=== PATIENT | female | born 1985 | race Caucasian/White ===

== ENCOUNTER 2017-06-16 12:49 | Emergency (ER) | payer MEDICAID ==
[~2017-06-16] VITALS: Ht 160 cm; Wt 105.9 kg
[2017-06-16 13:34] VITALS: BP 137/86
--- NOTE | 2017-06-16 13:36 | NUR ---
PT AMBULATES BACK TO THE LOBBY
--- NOTE | 2017-06-16 14:31 | NUR ---
PATIENT AMB. TO CHAIR #D
--- NOTE | 2017-06-16 14:36 | NUR ---
PT COMES TO ER WITH C/O EPIGATRIC PAIN WITH 12 EPISODES OF DIARRHEA SINCE THIS AM, PT DENIES ANY BLOOD IN STOOL. DENIES DYSURIA. ABD LARGE, NT TO PALPATION. RESP EVEN AND UNLABORED, IN NAD. SKIN W/D/I. KELVIN FOR ER MD DALY.
--- NOTE | 2017-06-16 14:47 | NUR ---
URINE COLLECTED AND TESTED
[2017-06-16] MEDS ORDERED: ONDANSETRON 4 MG ODT SL PRN (17:20)
[2017-06-16] MEDS ORDERED: LOPERAMIDE 2 MG CAP PO ONE (17:20)
--- NOTE | 2017-06-16 17:24 | NUR ---
DR MCCORD IN ROOM FOR EXAM
[2017-06-16 17:36] LABS: BASOPHILS % (AUTO) 0.5 % (0.0-2.0); EOSINOPHILS # (AUTO) 0.1 K/uL (0-0.4); EOSINOPHILS % (AUTO) 1.7 % (0.0-4.0); HEMATOCRIT 43.7 % (36-48); HEMOGLOBIN 14.4 g/dL (12.0-16.0); LYMPHOCYTES # (AUTO) 3.1 K/uL (2.5-16.5); LYMPHOCYTES % (AUTO) 42.2 % (20.5-51.1); MEAN CORPUSCULAR HEMOGLOBIN 28 pg (27-31); MEAN CORPUSCULAR HGB CONC 33 g/dL (33-37); MEAN CORPUSCULAR VOLUME 84 fL (80-94); MONOCYTES # (AUTO) 0.3 K/uL (0.8-1.0); MONOCYTES % (AUTO) 3.6 % (1.7-9.3); NEUTROPHILS # (AUTO) 3.7 K/uL (1.8-7.7); PLATELET COUNT (AUTO) 232 K/uL (140-450); RED BLOOD CELL COUNT(AUTO) 5.21 MIL/uL (4.20-5.40); RED CELL DISTRIBUTION WIDTH 12.6 % (11.6-13.7); WHITE BLOOD COUNT (AUTO) 7.2 K/uL (4.8-10.8)
[2017-06-16 17:56] LABS: ALBUMIN 3.9 g/dL (3.4-5.0); ANION GAP 11.9 (8-16); CARBON DIOXIDE 28.1 mmol/L (21-32); CREATININE 0.7 mg/dL (0.6-1.3); TOTAL BILIRUBIN 0.4 mg/dL (0.0-1.0)
--- NOTE | 2017-06-16 18:05 | NUR ---
PT HAS NOT HAD ANY DIARRHEA EPISODES WHILE IN ER, REPORTS FEELING BETTER. PHYSICIAN UPDATED AND WAIITNG FOR DISPOSITION
[2017-06-16 18:21] VITALS: BP 116/88
--- NOTE | 2017-06-16 18:24 | NUR ---
Patient discharged with v/s stable. Written and verbal after care instructions given and explained. Patient alert, oriented and verbalized understanding of instructions. Ambulatory with steady gait. All questions addressed prior to discharge. ID band removed. Patient advised to follow up with PMD. Rx of ZOFRAN ACETAMINOPHEN, IMMODIUM given. Patient educated on indication of medication including possible reaction and side effects. Opportunity to ask questions provided and answered.
== END 2017-06-16 18:24 | disposition home or self-care (01) ==
LOC: MED 12:49
DX: A08.4 Viral intestinal infection, unspecified (principal); Z90.49 Acquired absence of other specified parts of digestive tract
CPT/HCPCS: 36415; 80053; 81002; 81025; 83690; 85025; 99284; S0119

== ENCOUNTER 2018-07-28 10:22 | Emergency (ER) | payer MEDICAID ==
[~2018-07-28] VITALS: Ht 160 cm; Wt 86.2 kg
[2018-07-28 10:47] VITALS: BP 138/59
--- NOTE | 2018-07-28 10:58 | NUR ---
PT TO ED WITH C/O NON PRODUCTIVE COUGH X 3 DAYS. PT DENIES CP/SOB AT THIS TIME. WHEEZES HEARD TO BILATERAL LOBES. NO OBVIOUS DISTRESS NOTED. PT PLACED INTO BED, PENDING MD DALY.
--- NOTE | 2018-07-28 11:15 | NUR ---
FLU SWAB COLLECTED AND SENT TO LAB.
[2018-07-28] MEDS ORDERED: predniSONE 20 MG TAB PO ONE (12:00)
[2018-07-28] MEDS ORDERED: IPRATROPIUM 0.02% 0.5 MG/2.5 ML NEBU INH ONE (12:00)
[2018-07-28] MEDS ORDERED: ALBUTEROL 0.083% 2.5 MG/3 ML NEBU INH ONE (12:00)
--- NOTE | 2018-07-28 12:06 | NUR ---
RT AT BEDSIDE FOR BREATHING TX.
--- NOTE | 2018-07-28 12:37 | NUR ---
Patient discharged with v/s stable. Written and verbal after care instructions given and explained. Patient alert, oriented and verbalized understanding of instructions. Ambulatory with steady gait. All questions addressed prior to discharge. ID band removed. Patient advised to follow up with PMD. Rx of ALBUTEROL, PREDNISONE given. Patient educated on indication of medication including possible reaction and side effects. Opportunity to ask questions provided and answered.
[2018-07-28 12:38] VITALS: BP 131/63
== END 2018-07-28 12:37 | disposition home or self-care (01) ==
LOC: MED 10:22
DX: J98.01 Acute bronchospasm (principal); B34.9 Viral infection, unspecified; Z98.890 Other specified postprocedural states
CPT/HCPCS: 87804; 94640; 99283; J7512; J7613; J7644

== ENCOUNTER 2020-10-16 00:30 | Emergency (ER) | payer MEDICAID ==
[~2020-10-16] VITALS: Ht 160 cm; Wt 94.8 kg
[2020-10-16 00:46] VITALS: BP 109/71
--- NOTE | 2020-10-16 00:51 | NUR ---
Pt ambulated to lobby w/ steady gait. Pt provided w/ specimen cup for encouragement of urine sample.
[2020-10-16 01:14] LABS: BASOPHILS % (AUTO) 0.2 % (0.0-2.0); EOSINOPHILS # (AUTO) 0.1 K/uL (0-0.4); EOSINOPHILS % (AUTO) 0.9 % (0.0-4.0); HEMATOCRIT 42.9 % (36-48); HEMOGLOBIN 14.4 g/dL (12.0-16.0); LYMPHOCYTES # (AUTO) 2.6 K/uL (2.5-16.5); LYMPHOCYTES % (AUTO) 32.3 % (20.5-51.1); MEAN CORPUSCULAR HEMOGLOBIN 29 pg (27-31); MEAN CORPUSCULAR HGB CONC 34 g/dL (33-37); MEAN CORPUSCULAR VOLUME 85.4 fL (80-94); MONOCYTES # (AUTO) 0.3 K/uL (0.8-1.0); MONOCYTES % (AUTO) 4.4 % (1.7-9.3); NEUTROPHILS # (AUTO) 4.9 K/uL (1.8-7.7); NEUTROPHILS % (AUTO) 62.2 % (42.2-75.2); PLATELET COUNT (AUTO) 214 K/uL (140-450); RED BLOOD CELL COUNT(AUTO) 5.02 MIL/uL (4.20-5.40); RED CELL DISTRIBUTION WIDTH 12.9 % (11.6-13.7); WHITE BLOOD COUNT (AUTO) 7.9 K/uL (4.8-10.8)
--- NOTE | 2020-10-16 01:20 | NUR ---
PT TAKEN TO BED 4
[2020-10-16 01:25] LABS: ANION GAP 17.1 (8-16); CARBON DIOXIDE 26.2 mmol/L (21-32); CREATININE 0.7 mg/dL (0.6-1.3); POTASSIUM 4.3 mmol/L (3.5-5.1)
[2020-10-16 01:30] LABS: ALBUMIN 3.8 g/dL (3.4-5.0); TOTAL BILIRUBIN 0.3 mg/dL (0.0-1.0)
[2020-10-16 01:31] LABS: APPEARANCE,URINE SL CLOUDY (CLEAR); BILIRUBIN,URINE NEGATIVE (NEGATIVE); BLOOD, URINE NEGATIVE (NEGATIVE); COLOR,URINE YELLOW (YELLOW); LEUKOCYTE ESTERASE ,URINE NEGATIVE (NEGATIVE); NITRITE, URINE NEGATIVE (NEGATIVE); UGLUCOSE 3+ (NEGATIVE)
--- NOTE | 2020-10-16 01:36 | NUR ---
placed in gown. connected to vs monitor.
[2020-10-16] MEDS ORDERED: MORPHINE SULFATE 2 MG/ML SYR IVP ONE (02:00)
[2020-10-16] MEDS ORDERED: PANTOPRAZOLE 40 MG INJ VIAL IVP ONE (02:00)
[2020-10-16] MEDS ORDERED: NACL 0.9% 1,000 ML IV ONE (02:00)
[2020-10-16] MEDS ORDERED: ONDANSETRON 4 MG/2 ML VIAL IVP ONE (02:00)
--- NOTE | 2020-10-16 04:20 | NUR ---
NAD at this time. provided pt with cup of water per request.
--- NOTE | 2020-10-16 05:22 | NUR ---
NAD at this time. pt states no needs.
[2020-10-16] MEDS ORDERED: METF-988 PO (05:24)
--- NOTE | 2020-10-16 06:38 | NUR ---
NAD at this time. pt currently asleep. awaiting US
--- NOTE | 2020-10-16 06:46 | NUR ---
Ultrasound at bedside.
--- NOTE | 2020-10-16 07:08 | NUR ---
Report and continuation of care received from XUAN Perez.
--- NOTE | 2020-10-16 07:27 | NUR ---
Patient resting comfortably in semi-fowlers position. surveillance monitor in place. Bed locked in lowest position, side rails x 1, call light in reach.
--- NOTE | 2020-10-16 08:12 | NUR ---
Dr. Beard is evaluating the patient at bedside.
[2020-10-16] MEDS ORDERED: FAMO-92 PO (08:23)
--- NOTE | 2020-10-16 08:25 | NUR ---
Patient resting comfortably in semi-fowlers position. value advisor in place. Bed locked in lowest position, side rails x 1, call light in reach. Copy of US/CT and lab work provided to pt at this time.
[2020-10-16 08:30] VITALS: BP 105/55
--- NOTE | 2020-10-16 08:30 | NUR ---
Patient discharged with v/s stable. Written and verbal after care instructions given and explained. Patient alert, oriented and verbalized understanding of instructions. Ambulatory with steady gait. All questions addressed prior to discharge. ID band removed. Patient advised to follow up with PMD. Rx of Famitodine, Metformin given. Patient educated on indication of medication including possible reaction and side effects. Opportunity to ask questions provided and answered.
== END 2020-10-16 08:30 | disposition home or self-care (01) ==
LOC: MED 00:30
DX: R10.13 Epigastric pain (principal); E11.9 Type 2 diabetes mellitus without complications; R19.00 Intra-abdominal and pelvic swelling, mass and lump, unspecified site; R11.2 Nausea with vomiting, unspecified; Z79.899 Other long term (current) drug therapy
CPT/HCPCS: 36415; 74176; 76856; 80053; 81003; 81025; 83036; 83605; 83690; 84703; 85025; 96361; 96374; 96375; 99285; C9113; J2270; J2405; J7030

== ENCOUNTER 2021-01-27 16:00 | Emergency (ER) | payer MEDICAID, SELFPAY ==
[~2021-01-27] VITALS: Ht 165.1 cm; Wt 86.2 kg
[~2021-01-27 16:00] MED LIST: FAMO-92 PO; METF-988 PO
[2021-01-27 16:10] VITALS: BP 116/75
--- NOTE | 2021-01-27 16:10 | NUR ---
PT TO AWAIT IN TENT
[2021-01-27] MEDS ORDERED: DICYCLOMINE HCL LIQUID 20 MG, ALUMINUM HYD/MAG/SIMETHICONE 30 ML, LIDOCAINE VISCOUS 2% ... PO ONE ×3 (16:55)
[2021-01-27] MEDS ORDERED: PROCHLORPERAZINE 5 MG TAB PO ONE (16:55)
[2021-01-27] MEDS ORDERED: KETOROLAC 30 MG/ML VIAL IM ONE (16:55)
[2021-01-27] MEDS ORDERED: ACETAMINOPHEN 650 MG/20.3 ML UDC PO ONE (16:55)
--- NOTE | 2021-01-27 17:00 | NUR ---
35 Y/O FEMALEC/O ABD PAIN XTODAY. DENIES ANY NAUSEA/VOMITING, DIARRHEA OR CONSTIPATION. PT STATES 8/ PAIN "FEELS LIKE MY KIDNEY STONES" MEDHX: KIDNEY STONES NKA
[2021-01-27] MEDS ORDERED: ALUMINUM HYD/MAG/SIMETHICONE 30 ML UDC ONE (17:06)
[2021-01-27] MEDS ORDERED: DICYCLOMINE HCL LIQUID 10 MG/5 ML UDC ONE (17:06)
[2021-01-27 17:12] LABS: BASOPHILS % (AUTO) 0.3 % (0.0-2.0); EOSINOPHILS # (AUTO) 0.1 K/uL (0-0.4); EOSINOPHILS % (AUTO) 0.8 % (0.0-4.0); HEMATOCRIT 43.1 % (36-48); HEMOGLOBIN 14.5 g/dL (12.0-16.0); LYMPHOCYTES # (AUTO) 2.9 K/uL (2.5-16.5); LYMPHOCYTES % (AUTO) 34.8 % (20.5-51.1); MEAN CORPUSCULAR HEMOGLOBIN 29 pg (27-31); MEAN CORPUSCULAR HGB CONC 34 g/dL (33-37); MONOCYTES # (AUTO) 0.3 K/uL (0.8-1.0); MONOCYTES % (AUTO) 4.1 % (1.7-9.3); NEUTROPHILS # (AUTO) 4.9 K/uL (1.8-7.7); PLATELET COUNT (AUTO) 250 K/uL (140-450); RED BLOOD CELL COUNT(AUTO) 5.01 MIL/uL (4.20-5.40); RED CELL DISTRIBUTION WIDTH 13.1 % (11.6-13.7); WHITE BLOOD COUNT (AUTO) 8.2 K/uL (4.8-10.8)
[2021-01-27 17:13] LABS: APPEARANCE,URINE CLEAR (CLEAR); BILIRUBIN,URINE NEGATIVE (NEGATIVE); BLOOD, URINE TRACE-I (NEGATIVE); COLOR,URINE YELLOW (YELLOW); LEUKOCYTE ESTERASE ,URINE NEGATIVE (NEGATIVE); NITRITE, URINE NEGATIVE (NEGATIVE); UGLUCOSE 3+ (NEGATIVE)
[2021-01-27 17:29] LABS: ALBUMIN 3.9 g/dL (3.4-5.0); ANION GAP 15.7 (8-16); CARBON DIOXIDE 27.6 mmol/L (21-32); CREATININE 0.6 mg/dL (0.6-1.3); POTASSIUM 4.3 mmol/L (3.5-5.1); TOTAL BILIRUBIN 0.3 mg/dL (0.0-1.0)
[2021-01-27] MEDS ORDERED: FAMO-90 PO (18:10)
[2021-01-27] MEDS ORDERED: IBUP-2213 PO (18:10)
[2021-01-27 18:19] VITALS: BP 123/84
--- NOTE | 2021-01-27 18:19 | NUR ---
Patient discharged with v/s stable. Written and verbal after care instructions given and explained. Patient alert, oriented and verbalized understanding of instructions. Ambulatory with steady gait. All questions addressed prior to discharge. ID band removed. Patient advised to follow up with PMD. Rx of PEPCID AND IBUPROFEN given. Patient educated on indication of medication including possible reaction and side effects. Opportunity to ask questions provided and answered.
== END 2021-01-27 18:19 | disposition home or self-care (01) ==
LOC: MED 16:00
DX: R10.9 Unspecified abdominal pain (principal); R51.9 Headache, unspecified; E11.9 Type 2 diabetes mellitus without complications; Z87.442 Personal history of urinary calculi
CPT/HCPCS: 36415; 80053; 81003; 81025; 83690; 85025; 96372; 99284; J1885; Q0164

== ENCOUNTER 2023-06-30 04:00 | Emergency (ER) | payer BC, MEDICAID ==
[~2023-06-30] VITALS: Ht 165.1 cm; Wt 92.5 kg
[~2023-06-30 04:00] MED LIST changes: +FAMO-90 PO; +IBUP-2213 PO; +METF-1243 PO; -METF-988 PO
[2023-06-30 04:23] VITALS: BP 135/74; PULSE 99; RESP 20; TEMP 98.3; O2SAT 99
[2023-06-30] MEDS ORDERED: ACYC400T14 PO (05:35)
[2023-06-30] MEDS ORDERED: IBUP-2213 PO (05:35)
[2023-06-30] MEDS ORDERED: ACET-10509 PO (05:35)
== END 2023-06-30 06:01 | disposition home or self-care (01) ==
LOC: MED 04:00
DX: A60.04 Herpesviral vulvovaginitis (principal); Z79.899 Other long term (current) drug therapy
CPT/HCPCS: 81002; 81025; 99283